=== PATIENT | male | born 1970 | race Caucasian/White ===

== ENCOUNTER 2017-10-22 22:15 | Emergency (ER) | payer OTHER ==
[2017-10-22 22:21] VITALS: TEMP 98.5; BMI 33.7
[2017-10-22 23:15] LABS: BASO % 0.8 % (0-2.0); EOS % 1.3 % (0-4.5); HEMATOCRIT 41.3 % (35.4-49); HEMOGLOBIN 14.5 GM/dL (11.7-16.9); LYMPH % 32.2 % (8-40); MCH 30.6 pg (25.7-33.7); MCHC 35.2 g/dl (32.0-35.9); MONO % 8.4 % (3.8-10.2); NEUT % 57.3 % (42.8-82.8); PLATELET COUNT 204 K/MM3 (134-434); RBC 4.75 M/mm3 (4.00-5.60); WHITE BLOOD COUNT 9.8 K/mm3 (4.0-10.0)
--- NOTE | 2017-10-22 23:31 | PDOC ---
Attending Attestation - Resident Resident Name: TylerZhao ojeda - ED Attending Attestation I have performed the following: I have examined & evaluated the patient, The case was reviewed & discussed with the resident, I agree w/resident's findings & plan, Exceptions are as noted - Medical Decision Making 10/22/17 23:30 I, Dr. Hollie Childress, DO, attest that this document has been prepared under my direction and personally reviewed by me in its entirety. I further attest, that it accurately reflects all work, treatment, procedures and medical decision -making performed by me. 10/22/17 23:45 a/p: 47yo male with recent tooth pulling x 4 with palpitations -decreased po intake, only drinking coffee -also states he is stressed at work and arguing with his gf -will send labs -ivf hydraiton x 1 liter -cxr -ekg -trop -however suspect caffeine induced palpitations -will monitor -pt requesting to follow up with Dr. Eng -no cp <Hollie Childress - Last Filed: 10/22/17 23:45> - HPI HPI: 10/22/17 23:49 The patient is a 47 year old male who is s/p recent dental extractions who presents to the ED complaining of palpitations today. He does reports drinking 6 cups of coffee today prior to the onset of his symptoms. He also endorses recent stressors at work and with his girlfriend at home. The patient denies chest pain or shortness of breath. He denies lightheadedness or peripheral edema. He denies fever or chills. - Physicial Exam PE: 10/22/17 23:52 Constitutional: Awake, alert, oriented. No acute distress. Head: Normocephalic. Atraumatic Eyes: PERRL. EOMI. Conjunctivae are not pale. ENT: Mucous membranes are moist and intact. Posterior pharynx without exudates or erythema. Uvula midline. Neck: Supple. Full ROM. No lymphadenopathy. Cardiovascular: Regular rate. Regular rhythm. S1, S2 regular. Distal pulses are 2+ and symmetric. Pulmonary/Chest: No evidence of respiratory distress. Clear to auscultation bilaterally No wheezing, rales or rhonchi. Abdominal: Soft and non-distended. There is no tenderness. No rebound, guarding or rigidity. No organomegaly. No palpable masses. Good bowel sounds. Back: No CVA tenderness. Musculoskeletal: No edema. No cyanosis. No clubbing. Full range of motion in all extremities. Nocalf tenderness. Radial/pedal pulses are intact and 2+ bilaterally Skin: Skin is warm and dry. No petechiae. No purpura. Neurological: Alert and oriented to person, place, and time. Cranial nerves II -XII are grossly intact. Normal speech. Strength is grossly symmetric. No sensory deficits. Psychiatric: Good eye contact. Normal interaction, affect and behavior. - Medical Decision Making 10/22/17 23:52 Documentation prepared by Ketty Arreguin, acting as medical records director for Hollie Childress DO. <Ketty Arreguin - Last Filed: 10/22/17 23:53> Heart Score/ECG Review - ECG Intrepretation Comment:: 10/22/17 23:30 sinus at 89, 1st degree av block, t wave inversions inferior leads, abnl ekg <Hollie Childress - Last Filed: 10/22/17 23:45>
[2017-10-22 23:50] LABS: INR 1.03 (0.82-1.09); PROTHROMBIN TIME (PATIENT) 11.6 SEC (9.7-13.0)
[2017-10-22 23:55] VITALS: BP 153/102; PULSE 90
[2017-10-23] LABS: ALBUMIN 3.9 g/dl (3.4-5.0); ANION GAP 8 (8-16); BILIRUBIN,TOTAL 0.3 mg/dL (0.2-1.0); BLOOD UREA NITROGEN 13 mg/dL (7-18); CALCIUM 9.2 mg/dL (8.5-10.1); CHLORIDE 104 mmol/L (98-107); CO2 28 mmol/L (21-32); CREATININE 1.1 mg/dL (0.7-1.3); GLUCOSE,RANDOM 104 mg/dL (74-106); MAGNESIUM 1.7 mg/dL (1.8-2.4); POTASSIUM 3.9 mmol/L (3.5-5.1); SGOT/AST 24 U/L (15-37); SGPT/ALT 54 U/L (12-78); SODIUM 140 mmol/L (136-145); TOT PROT 7.7 g/dl (6.4-8.2)
[2017-10-23 00:03] LABS: ALK PHOS 53 U/L (45-117)
[2017-10-23] MEDS ORDERED: SODIUM CHLORIDE 0.9% 500 ML INFUS.BAG IV ONE (00:24)
--- NOTE | 2017-10-23 00:50 | PDOC ---
History of Present Illness - General Chief Complaint: Chest Pain Stated Complaint: CHEST PAIN Time Seen by Provider: 10/22/17 22:52 History Source: Patient Exam Limitations: No Limitations - History of Present Illness Initial Comments: 10/23/17 00:44 Patient is a 47M with no significant medical history coming in today complaining of palpitations. Patient states that 24 hours and one hour prior to visit that he had a run of palpitations. Denies chest pain, shortness of breath , leg swelling, nausea, vomiting, recent travel and history of blood clots. Patient reports that he hasn't eaten much after having several teeth removed, but has been drinking coffee. Past History - Past Medical History Allergies/Adverse Reactions: Allergies Allergy/AdvReac Type Severity Reaction Status Date / Time No Known Allergies Allergy Verified 10/22/17 23:36 Home Medications: Ambulatory Orders NK [No Known Home Medication] 10/22/17 COPD: No Diabetes: Yes (NIDDM.) - Suicide/Smoking/Psychosocial Hx Smoking History: Never smoked Have you smoked in the past 12 months: No Information on smoking cessation initiated: No Hx Alcohol Use: No Drug/Substance Use Hx: No Substance Use Type: None Review of Systems - Review of Systems Comments:: 10/23/17 00:47 GENERAL/CONSTITUTIONAL: No fever or chills. No weakness. HEAD, EYES, EARS, NOSE AND THROAT: No change in vision. No sore throat. CARDIOVASCULAR: No chest pain or shortness of breath. +palpitations RESPIRATORY: No cough, wheezing, or hemoptysis. GASTROINTESTINAL: No nausea, vomiting, diarrhea or constipation. GENITOURINARY: No dysuria, frequency, or change in urination. MUSCULOSKELETAL: No joint or muscle swelling or pain. No neck or back pain. SKIN: No rash NEUROLOGIC: No headache, vertigo, loss of consciousness, or change in strength/ sensation. ENDOCRINE: No increased thirst. No abnormal weight change HEMATOLOGIC/LYMPHATIC: No anemia, easy bleeding, or history of blood clots. ALLERGIC/IMMUNOLOGIC: No hives or skin allergy. *Physical Exam - Vital Signs Last Vital Signs Temp Pulse Resp BP Pulse Ox 98.5 F 90 18 153/102 97 10/22/17 22:18 10/22/17 23:54 10/22/17 23:54 10/22/17 23:54 10/22/17 23:54 - Physical Exam Comments: 10/23/17 00:47 GENERAL: Awake, alert, and fully oriented, in no acute distress HEAD: No signs of trauma, normocephalic, atraumatic EYES: PERRLA, EOMI, sclera anicteric, conjunctiva clear ENT: Auricles normal inspection, hearing grossly normal, nares patent, oropharynx clear without exudates. Moist mucosa NECK: Normal ROM, supple, no lymphadenopathy, JVD, or masses LUNGS: No distress, speaks full sentences, clear to auscultation bilaterally HEART: Regular rate and rhythm, normal S1 and S2, no murmurs, rubs or gallops, peripheral pulses normal and equal bilaterally. ABDOMEN: Soft, nontender, normoactive bowel sounds. No guarding, no rebound. No masses EXTREMITIES: Normal inspection, Normal range of motion, no edema. No clubbing or cyanosis. NEUROLOGICAL: Cranial nerves II through XII grossly intact. Normal speech, normal gait, no focal sensorimotor deficits SKIN: Warm, Dry, normal turgor, no rashes or lesions noted. ED Treatment Course - LABORATORY CBC & Chemistry Diagram: 10/22/17 23:05 10/22/17 23:05 - ADDITIONAL ORDERS Additional order review: Laboratory Results 10/22/17 10/22/17 23:05 23:05 PT with INR 11.60 INR 1.03 Sodium 140 Potassium 3.9 Chloride 104 Carbon Dioxide 28 Anion Gap 8 BUN 13 Creatinine 1.1 Creat Clearance w eGFR > 60 Random Glucose 104 Calcium 9.2 Magnesium 1.7 L Total Bilirubin 0.3 AST 24 ALT 54 Alkaline Phosphatase 53 Creatine Kinase 196 Creatine Kinase Index 1.2 CK-MB (CK-2) 2.47 Troponin I < 0.02 Total Protein 7.7 Albumin 3.9 10/22/17 23:05 RBC 4.75 MCV 87.0 MCHC 35.2 RDW 13.0 MPV 8.0 Neutrophils % 57.3 Lymphocytes % 32.2 Monocytes % 8.4 Eosinophils % 1.3 Basophils % 0.8 - RADIOLOGY Radiology Studies Ordered: Category Date Time Status CHEST PA & LAT [RAD] Stat Radiology 10/22/17 23:00 Taken - Medications Given in the ED: ED Medications Discontinued Medications Generic Name Dose Route Start Last Admin Trade Name Freq PRN Reason Stop Dose Admin Sodium Chloride 1,000 ml 10/23/17 00:24 10/23/17 00:28 Normal Saline - IV 10/23/17 00:25 1,000 ml ONCE ONE Administration Medical Decision Making - Medical Decision Making 10/23/17 00:48 Patient is 47M with no significant medical history here today complaining of palpitations. Vital signs stable and normal. No symptoms at this time. Believe patient most likely has reaction to caffeine. Will evaluate further for cardiac etiologies. Will instruct patient to follow up with cardiology. EKG shows normal sinus rhythm with rate of 89. No st elevations/depressions. T wave inversions in inferior leads. Normal axis. Normal intervals. No prior EKGs. CBC, CMP, troponin reassuring. CXR clear. Will discharge with return precautions and instructions to follow up with cardiology. *DC/Admit/Observation/Transfer Diagnosis at time of Disposition: Palpitations - Discharge Dispostion Condition at time of disposition: Good Decision to Admit order: No - Referrals Referrals: Jose Ramon MD [Staff Physician] - - Patient Instructions Printed Discharge Instructions: DI for Palpitations Additional Instructions: Please return if you have any new, worsening or concerning symptoms. Please follow up with your primary care doctor this week. Please also follow up with cardiology. - Post Discharge Activity
--- NOTE | 2017-10-23 12:05 | EKG ---
Test Reason : Blood Pressure : / mmHG Vent. Rate : 089 BPM Atrial Rate : 089 BPM P-R Int : 204 ms QRS Dur : 096 ms QT Int : 342 ms P-R-T Axes : 049 051 -16 degrees QTc Int : 416 ms NORMAL SINUS RHYTHM T WAVE ABNORMALITY, CONSIDER INFERIOR ISCHEMIA ABNORMAL ECG WHEN COMPARED WITH ECG OF 11-JAN-2001 10:29, NONSPECIFIC T WAVE ABNORMALITY NOW EVIDENT IN LATERAL LEADS Confirmed by BROOKS SERRANO, JAN ([id number]) on 10/23/2017 12:05:26 PM Referred By: Confirmed By:JAN GUY MD
== END 2017-10-23 00:57 | disposition home or self-care (01) ==
LOC: JER 22:15
PROC: 3E0337Z Introduction of Electrolytic and Water Balance Substance into Peripheral Vein, Percutaneous Approach (ICD-10-PCS; principal; 2017-10-22)
DX: R00.2 Palpitations (principal)
CPT/HCPCS: 36415; 71046-TC-FY; 80053; 82550; 82553; 83735; 84484; 85025; 85610; 93005; 93010; 99284-25

== ENCOUNTER 2022-10-17 10:54 | Emergency (ER) | payer OTHER ==
[2022-10-17 11:04] VITALS: BP 141/77; PULSE 71; RESP 17; TEMP 98.6; BMI 32.3
[2022-10-17] MEDS ORDERED: SODIUM CHLORIDE 1,000 ML IV STA (11:54)
[2022-10-17] MEDS ORDERED: FAMOTIDINE 20 MG/50 ML IVPB 20 MG/50 ML MG IVPB ONE ×2 (11:54→13:35)
[2022-10-17] MEDS ORDERED: MAG HYDROX/AL HYDROX/SIMETH 30 ML UNIT-DOSE CUP PO ONE (11:55)
[2022-10-17] MEDS ORDERED: MAG HYDROX/AL HYDROX/SIMETH 30 ML UNIT-DOSE CUP ONE (12:27)
[2022-10-17 13:07] LABS: BASO % 0.5 % (0-2.0); HEMATOCRIT 49.1 % (35.4-49); HEMOGLOBIN 16.7 GM/dL (11.7-16.9); LYMPH % 27.4 % (8-40); MCH 29.8 pg (25.7-33.7); MEAN CELL VOLUME 87.6 fl (80-96); MEAN PLT VOLUME 8.8 fl (7.5-11.1); MONO % 8.5 % (3.8-10.2); NEUT % 60.6 % (42.8-82.8); PLATELET COUNT 252 10^3/uL (134-434); RDW 13.9 % (11.9-15.9); WHITE BLOOD COUNT 9.4 K/mm3 (4.0-10.0)
[2022-10-17 13:30] LABS: POTASSIUM 4.7 mmol/L (3.5-5.1)
[2022-10-17 13:32] LABS: CALCIUM 9.7 mg/dL (8.5-10.1)
[2022-10-17 13:33] LABS: ALBUMIN 4.1 g/dl (3.4-5.0); BLOOD UREA NITROGEN 21.7 mg/dL (7-18)
[2022-10-17 13:36] LABS: CREATININE 1.6 mg/dL (0.55-1.3)
[2022-10-17 13:37] LABS: BILIRUBIN,TOTAL 0.9 mg/dL (0.2-1); TOT PROT 8.4 g/dl (6.4-8.2)
[2022-10-17] MEDS ORDERED: SODIUM CHLORIDE 0.9% 500 ML INFUS.BAG IV ONE (14:03)
[2022-10-17 15:07] LABS: CHLORIDE 104 mmol/L (98-107); SODIUM 135 mmol/L (136-145)
[2022-10-17 15:08] LABS: CALCIUM 9.1 mg/dL (8.5-10.1)
[2022-10-17 15:09] LABS: BLOOD UREA NITROGEN 20.2 mg/dL (7-18); CO2 29 mmol/L (21-32); GLUCOSE,RANDOM 85 mg/dL (74-106)
[2022-10-17 15:12] LABS: CREATININE 1.6 mg/dL (0.55-1.3)
[2022-10-17 15:17] LABS: ANION GAP 3 MMOL/L (8-16); POTASSIUM 6.3 mmol/L (3.5-5.1)
== END 2022-10-17 15:49 | disposition home or self-care (01) ==
LOC: JER 10:54
PROC: 3E033GC Introduction of Other Therapeutic Substance into Peripheral Vein, Percutaneous Approach (ICD-10-PCS; principal; 2022-10-17)
PROC: 3E0337Z Introduction of Electrolytic and Water Balance Substance into Peripheral Vein, Percutaneous Approach (ICD-10-PCS; 2022-10-17)
DX: R11.2 Nausea with vomiting, unspecified (principal); R42 Dizziness and giddiness
CPT/HCPCS: 36415; 80048; 80053; 83690; 84484; 85025; 93005; 93010; 99284-25